=== PATIENT | male | born 1960 | race Caucasian/White ===

== ENCOUNTER 2019-02-10 09:38 | Outpatient (CLI) | payer OTHER, MEDICAID ==
[~2019-02-10 09:38] MED LIST: ALBU8.5H8 IH; ASPI-1077 PO; ATOR40TA PO; CLON-529 PO; DIAZ10TA5 PO; FLUT16SP26 NAS; GUAI120015 PO; IPRA4AER IH; LITH150C8 PO; LOP25T PO; MORP60CA19 PO; OXYC15TA88 PO; TAMS0.4C32 PO; UMEC1DIS IH; UMEC1DIS INH
== END 2019-02-10 23:59 | disposition home or self-care (01) ==
LOC: RAD 09:38
PROVIDERS: ATTEND Internal Medicine
DX: K22.4 Dyskinesia of esophagus (principal); J44.9 Chronic obstructive pulmonary disease, unspecified
CPT/HCPCS: 74220

== ENCOUNTER 2019-08-11 07:41 | Inpatient (IN) | payer MEDICARE, MEDICAID ==
[~2019-08-11] VITALS: Ht 185.4 cm; Wt 98.0 kg
[2019-08-11] MEDS ORDERED: methylPREDNISolone sod succ 125mg/2ml vial IV ONE (07:50)
[2019-08-11] MEDS ORDERED: ipratropium/albuterol 3ml nebule NEB ONE (07:50)
[2019-08-11 07:59] LABS: BASOPHILS # (AUTO) 0.1 X10'3 (0-0.2); BASOPHILS % (AUTO) 1.3 % (0-1); EOSINOPHILS # (AUTO) 0.3 X10'3 (0-0.9); EOSINOPHILS % (AUTO) 3.3 % (0-6); HEMATOCRIT 39.7 % (42.0-52.0); HEMOGLOBIN 13.4 g/dl (14.0-17.9); LYMPHOCYTES # (AUTO) 2.2 X10'3 (1.1-4.8); LYMPHOCYTES % (AUTO) 24.8 % (21-51); MEAN CORPUSCULAR HEMOGLOBIN 32.3 PG (27.0-31.0); MEAN CORPUSCULAR HGB CONC 33.8 g/dL (33.0-36.5); MEAN CORPUSCULAR VOLUME 95.7 FL (78-98); MEAN PLATELET VOLUME 7.7 FL (7.4-10.4); MONOCYTES # (AUTO) 0.7 X10'3 (0-0.9); MONOCYTES % (AUTO) 7.8 % (2-12); NEUTROPHILS # (AUTO) 5.5 X10'3 (1.8-7.7); NEUTROPHILS % (AUTO) 62.8 % (42-75); PLATELET COUNT 300 X10'3 (140-440); RED BLOOD COUNT 4.15 X10'6 (4.70-6.10); RED CELL DISTRIBUTION WIDTH 15.9 % (11.5-14.5); WHITE BLOOD COUNT 8.8 X10'3 (4.5-11.0)
[2019-08-11 08:01] LABS: ABG BASE EXCESS 2.9 mmol/L (-2.0-3.0); ABG HCO3 28.8 mmol/L (22.0-26.0); ABG OXYGEN SATURATION 94.2 % (95-98); ABG PCO2 (T) 48.8 mmHg (35.0-45.0); ABG PH (T) 7.389 (7.350-7.450); ABG PO2 (T) 73.5 mmHg (83-108); ALLEN'S TEST Positive; FCOHb 0.9 % (0.5-1.5); FLOW 6 L/min; FMetHb 0.1 % (0.3-1.12); FO2Hb 93.3 % (94-100); TOTAL HEMOGLOBIN 14.6 G/dl (14.0-17.9)
--- NOTE | 2019-08-11 08:03 | NUR ---
I have reviewed and agree with all medications administered and interventions performed by SECURITY INFRASTRUCTURE ENGINEER Student Arely Tomas.
[2019-08-11 08:14] LABS: ALANINE AMINOTRANSFERASE 20 U/L (12-78); ALBUMIN 3.2 G/DL (3.4-5.0); ALBUMIN/GLOBULIN RATIO 0.7 (1.1-1.5); ALKALINE PHOSPHATASE 65 IU/L (46-116); ANION GAP 8 (8-16); ASPARTATE AMINO TRANSFERASE 20 U/L (10-37); BILIRUBIN,TOTAL 0.5 MG/DL (0.1-1.0); BLOOD UREA NITROGEN 23 MG/DL (7-18); BUN/CREATININE RATIO 18.5 (5.4-32.0); CALCIUM 9.2 MG/DL (8.5-10.1); CHLORIDE 101 MMOL/L (99-107); CREATININE 1.24 MG/DL (0.60-1.10); GLUCOSE 166 MG/DL (70-104); POTASSIUM 3.5 MMOL/L (3.5-5.1); SODIUM 140 MMOL/L (135-145); TOTAL CARBON DIOXIDE 30.8 MMOL/L (24-32); TOTAL PROTEIN 7.7 G/DL (6.4-8.2); eGFR 60 ML/MIN
[2019-08-11 08:15] LABS: PARTIAL THROMBOPLASTIN TIME 28 SECONDS (22-32)
--- NOTE | 2019-08-11 08:41 | NUR ---
PT REPORTS TAKING 30MG OF NORCO LAST NIGHT. MD ADVISED, APAP AND TOX ORDERED. + TROPONIN. V.O. TO REPEAT EKG WHEN HR <120. HR 118 AT THIS TIME. REPEAT EKG IN PROGRESS.
[2019-08-11 08:43] LABS: ACETAMINOPHEN < 2.0 UG/ML (10-30)
[2019-08-11 08:45] LABS: ETHANOL < 0.010 GM/DL (0.0-0.010)
[2019-08-11] MEDS ORDERED: aspirin 325mg tablet PO ONE (08:45)
--- NOTE | 2019-08-11 09:28 | NUR ---
DR. NOVAK IN TO ADMIT PT
[2019-08-11] MEDS ORDERED: diltiazem 30mg tablet PO ONE ×2 (09:45→12:20)
[2019-08-11] MEDS ORDERED: magnesium hydroxide 30ml (MOM) UD suspension PO PRN (09:45)
[2019-08-11] MEDS ORDERED: mag hydrox/Alum hydrox/simeth 30ml oral suspension PO PRN (09:45)
[2019-08-11] MEDS ORDERED: ondansetron/PF 4mg/2ml inj IV PRN (09:45)
[2019-08-11] MEDS ORDERED: acetaminophen 325mg tablet PO PRN (09:45)
[2019-08-11] MEDS: ipratropium/albuterol 3ml nebule NEB SCH ×4 (10:21→23:00)
[2019-08-11 10:30] LABS: URINE AMPHETAMINE SCREEN NEGATIVE (Neg); URINE BARBITUATE SCREEN NEGATIVE (Neg); URINE BENZODIAZEPINES SCREEN POSITIVE (Neg); URINE CANNABINOID SCREEN NEGATIVE (Neg); URINE COCAINE SCREEN NEGATIVE (Neg); URINE METHADONE SCREEN NEGATIVE (Neg); URINE OPIATE SCREEN POSITIVE (Neg); URINE PHENCYCLIDINE SCREEN NEGATIVE (Neg)
--- NOTE | 2019-08-11 10:42 | NUR ---
ATTEMPTED TO DO MED REC WITH PT. STATES HE TAKES NO HOME PILLS AND HAS NO PMD. PT USES [facility] ORDER FOR MEDS. PT STATES HE ONLY TAKES NEBULIZER TREATMENTS AT HOME AND FLOVENT, AND TRELOGY WHEN HE REMEMBERS. [facility] NOTIFIED AND DR. SCARLET FUENTES.
[2019-08-11] MEDS: HYDROcodone/acetaminophen 10/325mg tab PO PRN (11:58)
[2019-08-11 14:00] VITALS: BP 169/105
--- NOTE | 2019-08-11 14:00 | NUR ---
Patient in room PCU 3013. I have received report from Lisa BOYD and had the opportunity to ask questions and assume patient care.
[2019-08-11] MEDS: methylPREDNISolone sod succ 125mg/2ml vial IV SCH ×2 (14:48→20:10)
[2019-08-11] MEDS: morphine 2 MG/ML inj. syringe IV PRN ×2 (14:48→20:10)
[2019-08-11] MEDS: diltiazem 30mg tablet PO SCH ×2 (14:49→20:11)
[2019-08-11 15:00] VITALS: BP 145/96
[2019-08-11] MEDS ORDERED: iohexol 350MG/ML 100ml bottle IV ONE (17:56)
[2019-08-11 18:00] VITALS: BP 176/101
--- NOTE | 2019-08-11 18:27 | NUR ---
report received from DEB Goetz
--- NOTE | 2019-08-11 18:27 | NUR ---
Problems reprioritized. Patient report given, questions answered & plan of care reviewed with Marcelo BOYD.
[2019-08-11] MEDS: heparin, porcine 5000 units/ml vial SQ SCH (20:08)
[2019-08-11 21:34] VITALS: BP 168/96
[2019-08-11] MEDS: hydrALAZINE 20mg/ml inj. IV PRN (21:34)
[2019-08-11 22:00] VITALS: BP 165/92
[2019-08-12 02:00] VITALS: BP 155/97
[2019-08-12] MEDS: diltiazem 30mg tablet PO SCH ×4 (02:05→20:02)
[2019-08-12] MEDS: methylPREDNISolone sod succ 125mg/2ml vial IV SCH ×4 (02:05→20:01)
[2019-08-12] MEDS: morphine 2 MG/ML inj. syringe IV PRN ×4 (02:06→21:36)
[2019-08-12] MEDS: ipratropium/albuterol 3ml nebule NEB SCH ×7 (03:00→23:00)
[2019-08-12] MEDS: HYDROcodone/acetaminophen 10/325mg tab PO PRN (05:02)
[2019-08-12 05:29] LABS: BASOPHILS % (AUTO) 0.2 % (0-1); EOSINOPHILS % (AUTO) 0 % (0-6); HEMATOCRIT 37.6 % (42.0-52.0); HEMOGLOBIN 12.9 g/dl (14.0-17.9); LYMPHOCYTES # (AUTO) 0.4 X10'3 (1.1-4.8); MEAN CORPUSCULAR HEMOGLOBIN 32.6 PG (27.0-31.0); MEAN CORPUSCULAR HGB CONC 34.3 g/dL (33.0-36.5); MEAN CORPUSCULAR VOLUME 94.9 FL (78-98); MEAN PLATELET VOLUME 8.3 FL (7.4-10.4); MONOCYTES # (AUTO) 0.2 X10'3 (0-0.9); MONOCYTES % (AUTO) 2.3 % (2-12); NEUTROPHILS # (AUTO) 6.1 X10'3 (1.8-7.7); NEUTROPHILS % (AUTO) 91.5 % (42-75); PLATELET COUNT 252 X10'3 (140-440); RED BLOOD COUNT 3.96 X10'6 (4.70-6.10); RED CELL DISTRIBUTION WIDTH 15.8 % (11.5-14.5); WHITE BLOOD COUNT 6.7 X10'3 (4.5-11.0)
[2019-08-12 05:48] LABS: ALBUMIN 3.3 G/DL (3.4-5.0); ANION GAP 7 (8-16); BLOOD UREA NITROGEN 30 MG/DL (7-18); CALCIUM 10.1 MG/DL (8.5-10.1); CHLORIDE 98 MMOL/L (99-107); CREATININE 0.91 MG/DL (0.60-1.10); GLUCOSE 193 MG/DL (70-104); POTASSIUM 3.8 MMOL/L (3.5-5.1); SODIUM 137 MMOL/L (135-145); TOTAL CARBON DIOXIDE 32.2 MMOL/L (24-32); eGFR 86 ML/MIN
--- NOTE | 2019-08-12 06:27 | NUR ---
report given to DEB Lin
--- NOTE | 2019-08-12 06:45 | NUR ---
Patient in room PCU 3013. I have received report from Marcelo BOYD and had the opportunity to ask questions and assume patient care.
[2019-08-12] MEDS: aspirin 81mg tablet.DR PO SCH (09:12)
[2019-08-12] MEDS: heparin, porcine 5000 units/ml vial SQ SCH ×2 (09:12→20:02)
[2019-08-12] MEDS: levoFLOXACIN-Levaquin 500mg/D5 100 ML IV SCH (09:17)
[2019-08-12] MEDS ORDERED: SUMAtriptan 25 MG tablet PO ONE ×2 (09:25→10:55)
[2019-08-12 09:30] VITALS: BP 129/88
[2019-08-12 11:00] VITALS: BP 157/98
[2019-08-12] MEDS ORDERED: oxyCODONE/APAP 10/325mg tablet PO PRN (14:35)
[2019-08-12 15:00] VITALS: BP 151/88
[2019-08-12 18:00] VITALS: BP 148/96
--- NOTE | 2019-08-12 18:16 | NUR ---
Patient in room PCU 3013B. I have received report from DEB Lin and had the opportunity to ask questions and assume patient care.
--- NOTE | 2019-08-12 18:22 | NUR ---
Problems reprioritized. Patient report given, questions answered & plan of care reviewed with Ceci BOYD.
--- NOTE | 2019-08-12 21:50 | NUR ---
Attempted to DART patient, he stated that he already answered all these questions and he does not want to repeat himself.
[2019-08-12 22:00] VITALS: BP 150/96
[2019-08-13] VITALS (13 sets, daily range): BP systolic 134–151; BP diastolic 83–112
[2019-08-13] MEDS: methylPREDNISolone sod succ 125mg/2ml vial IV SCH ×4 (02:06→20:13)
[2019-08-13] MEDS: diltiazem 30mg tablet PO SCH ×4 (02:06→20:11)
[2019-08-13] MEDS: ipratropium/albuterol 3ml nebule NEB SCH ×6 (03:00→23:00)
--- NOTE | 2019-08-13 06:22 | NUR ---
Problems reprioritized. Patient report given, questions answered & plan of care reviewed with DEB Cast.
--- NOTE | 2019-08-13 06:34 | NUR ---
Patient in room PCU 3013B. I have received report from Ceci BOYD and had the opportunity to ask questions and assume patient care.
[2019-08-13 06:40] LABS: ALBUMIN 3.3 G/DL (3.4-5.0); ANION GAP 6 (8-16); BLOOD UREA NITROGEN 29 MG/DL (7-18); BUN/CREATININE RATIO 27.1 (5.4-32.0); CALCIUM 10.3 MG/DL (8.5-10.1); CHLORIDE 99 MMOL/L (99-107); CREATININE 1.07 MG/DL (0.60-1.10); GLUCOSE 169 MG/DL (70-104); POTASSIUM 4.7 MMOL/L (3.5-5.1); SODIUM 137 MMOL/L (135-145); TOTAL CARBON DIOXIDE 31.6 MMOL/L (24-32); eGFR 71 ML/MIN
[2019-08-13 06:51] LABS: BASOPHILS % (AUTO) 0 % (0-1); EOSINOPHILS % (AUTO) 0 % (0-6); HEMATOCRIT 35.6 % (42.0-52.0); HEMOGLOBIN 12.1 g/dl (14.0-17.9); LYMPHOCYTES # (AUTO) 0.3 X10'3 (1.1-4.8); LYMPHOCYTES % (AUTO) 2.1 % (21-51); MEAN CORPUSCULAR HEMOGLOBIN 32.3 PG (27.0-31.0); MEAN CORPUSCULAR HGB CONC 33.8 g/dL (33.0-36.5); MEAN CORPUSCULAR VOLUME 95.4 FL (78-98); MEAN PLATELET VOLUME 8.6 FL (7.4-10.4); MONOCYTES # (AUTO) 0.4 X10'3 (0-0.9); MONOCYTES % (AUTO) 2.3 % (2-12); NEUTROPHILS # (AUTO) 14.9 X10'3 (1.8-7.7); NEUTROPHILS % (AUTO) 95.6 % (42-75); PLATELET COUNT 237 X10'3 (140-440); RED BLOOD COUNT 3.74 X10'6 (4.70-6.10); WHITE BLOOD COUNT 15.6 X10'3 (4.5-11.0)
[2019-08-13] MEDS: heparin, porcine 5000 units/ml vial SQ SCH (08:00)
[2019-08-13] MEDS: morphine 2 MG/ML inj. syringe IV PRN ×4 (08:15→20:11)
[2019-08-13] MEDS: levoFLOXACIN-Levaquin 500mg/D5 100 ML IV SCH (08:15)
[2019-08-13] MEDS: aspirin 81mg tablet.DR PO SCH (08:15)
--- NOTE | 2019-08-13 09:29 | NUR ---
MICRO POSITIVE MRSA NASAL SWAB, REPORTED TO PRIMARY RN
[2019-08-13] MEDS ORDERED: LIDOcaine 1% (10mg/ml)w/preservative injection 20ml MDV ONE (10:32)
[2019-08-13] MEDS ORDERED: fentaNYL/PF 50MCG/1 ML 2ML syringe ONE ×2 (10:32→11:16)
[2019-08-13] MEDS ORDERED: iohexol 350 MG/ML 50ML vial IV ONE (10:32)
[2019-08-13] MEDS ORDERED: midazolam 2 mg/2 ml injection ONE ×4 (10:32→11:26)
[2019-08-13] MEDS ORDERED: iohexol 350MG/ML 100ml bottle IV ONE (10:33)
--- NOTE | 2019-08-13 10:50 | NUR ---
Patient taken to label cutter
[2019-08-13] MEDS ORDERED: diphenhydrAMINE 50 mg/ml inj ONE (11:09)
--- NOTE | 2019-08-13 11:40 | NUR ---
Received report from Alyssa BOYD in cardiac cath technician. Puncture site right femoral, perclose. Patient will be medically managed
[2019-08-13] MEDS ORDERED: normal saline 1000ml 1,000 ML IV SCH ×2 (12:00→16:00)
--- NOTE | 2019-08-13 12:00 | NUR ---
Patient returned from irrigation laborer. Pedal pulses present, puncture site assessed with no sign of hematoma. VS 139/90, T 98.0, HR 97, O2 99% on room air. Orders acknowledged and faxed to pharmacy. Will continue to monitor closely
[2019-08-13] MEDS ORDERED: bisoprolol 5mg tablet PO SCH ×2 (12:05→12:30)
[2019-08-13] MEDS: atenolol 25mg tablet PO SCH (12:57)
[2019-08-13] MEDS: hydrALAZINE 20mg/ml inj. IV PRN (15:20)
--- NOTE | 2019-08-13 18:15 | NUR ---
Patient in room PCU 3013. I have received report from DEB Cast and had the opportunity to ask questions and assume patient care.
--- NOTE | 2019-08-13 18:22 | NUR ---
Problems reprioritized. Patient report given, questions answered & plan of care reviewed with Holli BOYD.
[2019-08-13] MEDS: lactobacillus rhamnosus 10,000 MMU CELLS/CAPSULE PO SCH (20:12)
--- NOTE | 2019-08-13 23:48 | NUR ---
Vital sign machine turned off, data lost for remaining Q1H vital signs. Addendum: 08/14/19 at 0534 by Holli Henriquez RN Vital signs obtained correctly.
[2019-08-14 02:00] VITALS: BP 138/96
[2019-08-14] MEDS: diltiazem 30mg tablet PO SCH ×4 (02:37→19:23)
[2019-08-14] MEDS: morphine 2 MG/ML inj. syringe IV PRN ×4 (02:38→19:15)
[2019-08-14] MEDS: methylPREDNISolone sod succ 125mg/2ml vial IV SCH ×3 (02:38→19:12)
[2019-08-14 02:43] VITALS: BP 138/96
[2019-08-14] MEDS: ipratropium/albuterol 3ml nebule NEB SCH ×6 (03:00→23:00)
--- NOTE | 2019-08-14 05:34 | NUR ---
Patient states that he cannot breath. Despite education on emphysema and chronic lung disease, he continues to believe he needs more oxygen. He also states he is in pain and is a mess. He received Morphine per MD order 2 hrs ago. Education provided.
[2019-08-14 05:35] LABS: ALBUMIN 3.1 G/DL (3.4-5.0); ANION GAP 5 (8-16); BLOOD UREA NITROGEN 32 MG/DL (7-18); BUN/CREATININE RATIO 34.8 (5.4-32.0); CALCIUM 9.8 MG/DL (8.5-10.1); CHLORIDE 102 MMOL/L (99-107); CREATININE 0.92 MG/DL (0.60-1.10); GLUCOSE 163 MG/DL (70-104); POTASSIUM 4.4 MMOL/L (3.5-5.1); SODIUM 139 MMOL/L (135-145); TOTAL CARBON DIOXIDE 32.1 MMOL/L (24-32); eGFR 84 ML/MIN
[2019-08-14 05:36] LABS: BASOPHILS % (AUTO) 0 % (0-1); EOSINOPHILS % (AUTO) 0 % (0-6); HEMATOCRIT 35.3 % (42.0-52.0); HEMOGLOBIN 11.7 g/dl (14.0-17.9); LYMPHOCYTES # (AUTO) 0.2 X10'3 (1.1-4.8); LYMPHOCYTES % (AUTO) 1.4 % (21-51); MEAN CORPUSCULAR HEMOGLOBIN 32.1 PG (27.0-31.0); MEAN CORPUSCULAR HGB CONC 33.2 g/dL (33.0-36.5); MEAN CORPUSCULAR VOLUME 96.5 FL (78-98); MEAN PLATELET VOLUME 8.2 FL (7.4-10.4); MONOCYTES # (AUTO) 0.3 X10'3 (0-0.9); MONOCYTES % (AUTO) 1.8 % (2-12); NEUTROPHILS # (AUTO) 14.5 X10'3 (1.8-7.7); NEUTROPHILS % (AUTO) 96.8 % (42-75); PLATELET COUNT 221 X10'3 (140-440); RED BLOOD COUNT 3.66 X10'6 (4.70-6.10); RED CELL DISTRIBUTION WIDTH 16.2 % (11.5-14.5)
--- NOTE | 2019-08-14 06:09 | NUR ---
Problems reprioritized. Patient report given, questions answered & plan of care reviewed with DEB Cast.
--- NOTE | 2019-08-14 06:10 | NUR ---
Patient in room PCU 3013B. I have received report from Holli BOYD and had the opportunity to ask questions and assume patient care.
[2019-08-14 06:30] VITALS: BP 151/100
[2019-08-14] MEDS: atenolol 25mg tablet PO SCH (07:16)
[2019-08-14] MEDS: aspirin 81mg tablet.DR PO SCH (07:16)
[2019-08-14] MEDS: lactobacillus rhamnosus 10,000 MMU CELLS/CAPSULE PO SCH ×2 (07:16→19:23)
[2019-08-14] MEDS: levoFLOXACIN-Levaquin 500mg/D5 100 ML IV SCH (07:17)
[2019-08-14] MEDS ORDERED: oxyCODONE/APAP 10/325mg tablet PO PRN (09:10)
--- NOTE | 2019-08-14 11:00 | NUR ---
Patient refused 1100 vitals.
--- NOTE | 2019-08-14 12:33 | NUR ---
Patient frequently accusing the staff of being neglectful. When patient stated he is in pain, PRN morphine given if appropriate time as passed per order. New order from Dr Rizzo to give percocet 10-325mg, however, was instructed to ONLY give one dose and continue with prn morphine otherwise. When patient states he was having a harder time breathing, RT gave him a treatment and flutter valve instructions provided and education provided multiple times. Reassessing frequently. Frequent rounding done by nurse and aids. Reminding patient multiple times that the nurses cannot change orders for patient without order from the doctor. Claims we are "making him suffer."
[2019-08-14 15:00] VITALS: BP 158/103
--- NOTE | 2019-08-14 16:27 | NUR ---
Pt frequently reporting that staff is not addressing his needs and are being neglectful. Patient complaining that pain is not being managed and is requesting increased doses and frequency of pain medications. Reminded patient that nurses cannot change orders and reminded of orders per Dr. Rizzo. Given morphine IV and one dose of percocet 10mg during the course of shift. Patient is very upset that "no one is addressing my problems". Patient reports "I came here for the shoulder pain, and back pain, and tremors". He states that these have been ongoing for 2-3 months but "I couldn't wait anymore, but all anyone wants to talk about is my breathing". Active listening and support utilized with patient, encouraged him to express concerns. He reports that he is "appealing my discharge" and "I can't go home because I can't take care of myself", "you can't send me home like this". Reminded that patient is not yet being discharged, and we will work on resources prior to discharge. Patient again verbalizes frustration about pain management and wants more pain medications. He states "if I could get up and walk I would just go buy [place] on the [address]", "since you aren't giving me medications, I might as well go buy them somewhere". Reminded patient to ask for pain medications, and reinforced medication orders and plan of care. Will continue to monitor patient.
--- NOTE | 2019-08-14 18:24 | NUR ---
Problems reprioritized. Patient report given, questions answered & plan of care reviewed with Holli BOYD.
--- NOTE | 2019-08-14 18:28 | NUR ---
New hire documentation: I have reviewed and agree with all interventions, assessments performed and documented by Jany BOYD.
--- NOTE | 2019-08-14 18:41 | NUR ---
Patient in room PCU 3013. I have received report from DEB Cast and had the opportunity to ask questions and assume patient care.
[2019-08-14 22:00] VITALS: BP 131/92
[2019-08-15] MEDS: diltiazem 30mg tablet PO SCH ×3 (02:38→13:42)
[2019-08-15 02:41] VITALS: BP 166/95
[2019-08-15 02:43] VITALS: BP 156/94
[2019-08-15] MEDS: ipratropium/albuterol 3ml nebule NEB SCH ×3 (03:00→11:32)
--- NOTE | 2019-08-15 05:14 | NUR ---
Attempted IV 3 times. Patient refuses any more attempts at this time.
[2019-08-15 05:37] LABS: BASOPHILS % (AUTO) 0.1 % (0-1); EOSINOPHILS % (AUTO) 0 % (0-6); HEMATOCRIT 37.8 % (42.0-52.0); HEMOGLOBIN 12.8 g/dl (14.0-17.9); LYMPHOCYTES # (AUTO) 0.3 X10'3 (1.1-4.8); MEAN CORPUSCULAR HEMOGLOBIN 31.9 PG (27.0-31.0); MEAN CORPUSCULAR HGB CONC 33.8 g/dL (33.0-36.5); MEAN CORPUSCULAR VOLUME 94.4 FL (78-98); MEAN PLATELET VOLUME 8.6 FL (7.4-10.4); MONOCYTES # (AUTO) 0.5 X10'3 (0-0.9); MONOCYTES % (AUTO) 3.6 % (2-12); NEUTROPHILS # (AUTO) 12.6 X10'3 (1.8-7.7); NEUTROPHILS % (AUTO) 94.3 % (42-75); PLATELET COUNT 218 X10'3 (140-440); RED CELL DISTRIBUTION WIDTH 15.7 % (11.5-14.5); WHITE BLOOD COUNT 13.4 X10'3 (4.5-11.0)
[2019-08-15 05:46] LABS: ALBUMIN 3.3 G/DL (3.4-5.0); ANION GAP 5 (8-16); BLOOD UREA NITROGEN 28 MG/DL (7-18); BUN/CREATININE RATIO 34.1 (5.4-32.0); CALCIUM 9.5 MG/DL (8.5-10.1); CHLORIDE 99 MMOL/L (99-107); CREATININE 0.82 MG/DL (0.60-1.10); GLUCOSE 154 MG/DL (70-104); POTASSIUM 3.9 MMOL/L (3.5-5.1); SODIUM 139 MMOL/L (135-145); eGFR > 90 ML/MIN
[2019-08-15 06:00] VITALS: BP 167/106
--- NOTE | 2019-08-15 06:10 | NUR ---
Patient in room PCU 3013B. I have received report from Holli BOYD and had the opportunity to ask questions and assume patient care.
--- NOTE | 2019-08-15 06:18 | NUR ---
Problems reprioritized. Patient report given, questions answered & plan of care reviewed with DEB Cast.
[2019-08-15] MEDS: atenolol 25mg tablet PO SCH (07:38)
[2019-08-15] MEDS: aspirin 81mg tablet.DR PO SCH (07:38)
[2019-08-15] MEDS: lactobacillus rhamnosus 10,000 MMU CELLS/CAPSULE PO SCH (07:38)
--- NOTE | 2019-08-15 07:39 | NUR ---
Pt again reporting that nurses and staff are not addressing his concerns, that "I am sicker than when I came here" and "no one does anything about my pain". Again reminded of pain care plan and PRN medications. Encouraged relaxation techniques and self care. He states "I am too sick to move, I can't breathe if I move". Will attempt IV access for IV medications. Will continue to monitor patient.
--- NOTE | 2019-08-15 08:40 | NUR ---
Spoke with Dr. Manzo, who called for an update on the patient, discussed patient and Dr. 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
[2019-08-15 09:20] VITALS: BP 167/113
[2019-08-15] MEDS: hydrALAZINE 20mg/ml inj. IV PRN (09:23)
[2019-08-15] MEDS: methylPREDNISolone sod succ 125mg/2ml vial IV SCH (09:23)
[2019-08-15] MEDS: morphine 2 MG/ML inj. syringe IV PRN ×2 (09:24→13:42)
[2019-08-15] MEDS: levoFLOXACIN-Levaquin 500mg/D5 100 ML IV SCH (09:24)
[2019-08-15 11:00] VITALS: BP 125/73
--- NOTE | 2019-08-15 11:24 | NUR ---
Notified by PT that the patient refused to work with them, stating he could not get out of bed or walk "because I am in pain". PT will attempt again later today.
--- NOTE | 2019-08-15 12:30 | NUR ---
Called report to ARELIS Stearns, at [facility]. All questions answered and notified of transport time.
[2019-08-15 13:40] VITALS: BP 155/100
--- NOTE | 2019-08-15 14:00 | NUR ---
New hire documentation: I have reviewed and agree with all interventions, assessments performed and documented by Jany BOYD .
--- NOTE | 2019-08-15 14:00 | NUR ---
Per MD patient stable for discharge to [facility]. Report called. Family aware. IV removed, tele monitor removed. All belongings sent with patient, valuables removed from safe and returned to patient. Patient transferred via [facility] [employer] to facility.
== END 2019-08-15 14:00 | DRG 189 ==
LOC: ER 07:41 → ED HOLD 09:57 → PCU 3S 13:11
PROVIDERS: ADMIT Family Medicine; ATTEND Family Medicine
PROC: B32T1ZZ Computerized Tomography (CT Scan) of Left Pulmonary Artery using Low Osmolar Contrast (ICD-10-PCS; 2019-08-11)
PROC: B32S1ZZ Computerized Tomography (CT Scan) of Right Pulmonary Artery using Low Osmolar Contrast (ICD-10-PCS; 2019-08-11)
PROC: 4A023N7 Measurement of Cardiac Sampling and Pressure, Left Heart, Percutaneous Approach (ICD-10-PCS; principal; 2019-08-13)
PROC: B2111ZZ Fluoroscopy of Multiple Coronary Arteries using Low Osmolar Contrast (ICD-10-PCS; 2019-08-13)
PROC: B2151ZZ Fluoroscopy of Left Heart using Low Osmolar Contrast (ICD-10-PCS; 2019-08-13)
DX: J96.21 Acute and chronic respiratory failure with hypoxia (principal); I21.A1 Myocardial infarction type 2; J44.1 Chronic obstructive pulmonary disease with (acute) exacerbation; J44.0 Chronic obstructive pulmonary disease with (acute) lower respiratory infection; I25.10 Atherosclerotic heart disease of native coronary artery without angina pectoris; Z88.8 Allergy status to other drugs, medicaments and biological substances; E78.5 Hyperlipidemia, unspecified; I10 Essential (primary) hypertension; J20.9 Acute bronchitis, unspecified; G89.4 Chronic pain syndrome; R00.0 Tachycardia, unspecified; F32.9 Major depressive disorder, single episode, unspecified; F41.9 Anxiety disorder, unspecified; K21.9 Gastro-esophageal reflux disease without esophagitis; Z87.891 Personal history of nicotine dependence; Z85.51 Personal history of malignant neoplasm of bladder; Z98.1 Arthrodesis status
CPT/HCPCS: 36415; 36600; 71045; 71275; 73030; 80048; 80053; 80305; 80320; 80329; 82803; 83605; 83880; 84484; 85018; 85025; 85610; 85730; 87040; 87081; 93005; 93306; 93458; 94640; 94760; 96374; 97530; 99152; 99285; A4620; A6258; C1760; C1769; C1894; G0378; J0360; J1200; J1644; J1956; J2001; J2250; J2270; J2405; J2930; J3010; J7030; Q9967

== ENCOUNTER 2019-12-15 14:20 | Emergency (ER) | payer MEDICARE, MEDICAID ==
[~2019-12-15] VITALS: Ht 185.4 cm; Wt 105.0 kg
[~2019-12-15 14:20] MED LIST changes: +ALBU2.5V13 INH; -ALBU8.5H8 IH; -ASPI-1077 PO; -ATOR40TA PO; +ATR0.5NEB NEB; +BUDE0.5A11 NEB; -CLON-529 PO; -DIAZ10TA5 PO; -FLUT16SP26 NAS; +FLUT1BLS4 INH; +FURO40TA4 PO; -GUAI120015 PO; -IPRA4AER IH; -LITH150C8 PO; -LOP25T PO; +LYR75C PO; +METO-395 PO; +MORP15TA PO; -MORP60CA19 PO; +OXYC-511 PO; -OXYC15TA88 PO; +PANT-47 PO; +PRED5TAB PO; -TAMS0.4C32 PO; -UMEC1DIS IH; -UMEC1DIS INH
[2019-12-15 15:22] LABS: BASOPHILS % (AUTO) 0.2 % (0-1); EOSINOPHILS # (AUTO) 0.1 X10'3 (0-0.9); EOSINOPHILS % (AUTO) 0.8 % (0-6); HEMATOCRIT 35.5 % (42.0-52.0); HEMOGLOBIN 11.7 g/dl (14.0-17.9); MEAN CORPUSCULAR HEMOGLOBIN 28.4 PG (27.0-31.0); MEAN CORPUSCULAR HGB CONC 32.9 g/dL (33.0-36.5); MEAN CORPUSCULAR VOLUME 86.4 FL (78-98); MEAN PLATELET VOLUME 8.3 FL (7.4-10.4); MONOCYTES # (AUTO) 0.9 X10'3 (0-0.9); MONOCYTES % (AUTO) 5.5 % (2-12); NEUTROPHILS # (AUTO) 14.4 X10'3 (1.8-7.7); NEUTROPHILS % (AUTO) 87.5 % (42-75); PLATELET COUNT 284 X10'3 (140-440); RED BLOOD COUNT 4.11 X10'6 (4.70-6.10); RED CELL DISTRIBUTION WIDTH 17.1 % (11.5-14.5); WHITE BLOOD COUNT 16.4 X10'3 (4.5-11.0)
[2019-12-15 15:33] LABS: PARTIAL THROMBOPLASTIN TIME 36 SECONDS (22-32)
[2019-12-15] MEDS ORDERED: ipratropium/albuterol 3ml nebule NEB ONE (15:35)
[2019-12-15] MEDS ORDERED: dexamethasone sod phosphate 10mg/ml inj IV STA (15:35)
[2019-12-15 15:46] LABS: ALANINE AMINOTRANSFERASE 10 U/L (12-78); ALBUMIN 3.1 G/DL (3.4-5.0); ALBUMIN/GLOBULIN RATIO 0.8 (1.1-1.5); ALKALINE PHOSPHATASE 74 IU/L (46-116); ANION GAP 9 (8-16); ASPARTATE AMINO TRANSFERASE 14 U/L (10-37); BILIRUBIN,TOTAL 0.8 MG/DL (0.1-1.0); BLOOD UREA NITROGEN 9 MG/DL (7-18); CALCIUM 8.9 MG/DL (8.5-10.1); CHLORIDE 103 MMOL/L (99-107); CREATININE 0.82 MG/DL (0.60-1.10); GLUCOSE 103 MG/DL (70-104); POTASSIUM 3.8 MMOL/L (3.5-5.1); SODIUM 140 MMOL/L (135-145); TOTAL CARBON DIOXIDE 28.2 MMOL/L (24-32); TOTAL PROTEIN 7.1 G/DL (6.4-8.2); eGFR > 90 ML/MIN
[2019-12-15] MEDS ORDERED: iohexol 350MG/ML 100ml bottle IV ONE (16:06)
--- NOTE | 2019-12-15 16:31 | NUR ---
to cta via gurney with o2
[2019-12-15] MEDS ORDERED: DOXY100C43 PO (17:03)
[2019-12-15] MEDS ORDERED: ALBU8HFA PO (17:03)
[2019-12-15] MEDS ORDERED: ALB0.5UD IH (17:03)
[2019-12-15] MEDS ORDERED: PRED20TA PO (17:03)
[2019-12-15] MEDS ORDERED: ONDA4TAB6 PO ×2 (17:06→19:40)
[2019-12-15] MEDS ORDERED: HYDR-3965 PO ×2 (17:06→19:40)
[2019-12-15] MEDS ORDERED: ondansetron 4mg rapidly disintigrating tab PO ONE (17:30)
[2019-12-15] MEDS ORDERED: HYDROcodone/acetaminophen 10/325mg tab PO ONE (17:30)
[2019-12-15 17:37] VITALS: BP 157/119
--- NOTE | 2019-12-18 11:22 | NUR ---
Dr Ly ordered Cipro 500 mg PO BID for 7 days. Patient called and notified. Script called to [facility].
== END 2019-12-15 17:50 | disposition home or self-care (01) ==
LOC: ER 14:20
DX: J44.1 Chronic obstructive pulmonary disease with (acute) exacerbation (principal); G89.29 Other chronic pain; M25.512 Pain in left shoulder; I25.10 Atherosclerotic heart disease of native coronary artery without angina pectoris; K21.9 Gastro-esophageal reflux disease without esophagitis; J20.9 Acute bronchitis, unspecified; F41.9 Anxiety disorder, unspecified; F32.9 Major depressive disorder, single episode, unspecified; Z98.890 Other specified postprocedural states; Z85.9 Personal history of malignant neoplasm, unspecified; Z88.8 Allergy status to other drugs, medicaments and biological substances; Z79.899 Other long term (current) drug therapy
CPT/HCPCS: 36415; 71045; 71275; 80053; 83605; 83880; 85025; 85610; 85730; 87040; 87070; 87077; 87186; 87502; 87503; 93005; 94640; 96374; 99285; J1100; Q9967; 94760

== ENCOUNTER → 2020-02-16 | Outpatient (CLI) | payer MEDICARE, MEDICAID ==
[~2020-02-16] VITALS: Ht 185.4 cm; Wt 90.7 kg
[~2020-02-16] MED LIST changes: +HYDR-3965 PO; +ONDA4TAB6 PO; +albuterol 2.5 MG/3 ML nebule NEB ONE
== END | disposition home or self-care (01) ==
LOC: RT 14:35
PROVIDERS: ATTEND Internal Medicine Pulmonary Disease
DX: Z01.818 Encounter for other preprocedural examination (principal); J44.9 Chronic obstructive pulmonary disease, unspecified
CPT/HCPCS: 94060; 94727; 94729; 94760

== ENCOUNTER 2020-03-11 09:33 | Inpatient (IN) | payer MEDICARE, MEDICAID ==
[2020-03-05 16:46] LABS: BASOPHILS # (AUTO) 0.1 X10'3 (0-0.2); BASOPHILS % (AUTO) 1.3 % (0-1); EOSINOPHILS # (AUTO) 0.4 X10'3 (0-0.9); EOSINOPHILS % (AUTO) 5.3 % (0-6); LYMPHOCYTES # (AUTO) 1.5 X10'3 (1.1-4.8); LYMPHOCYTES % (AUTO) 18.1 % (21-51); MEAN CORPUSCULAR HEMOGLOBIN 29.4 PG (27.0-31.0); MEAN CORPUSCULAR HGB CONC 33.4 g/dL (33.0-36.5); MEAN CORPUSCULAR VOLUME 87.8 FL (78-98); MEAN PLATELET VOLUME 8.4 FL (7.4-10.4); MONOCYTES # (AUTO) 0.6 X10'3 (0-0.9); MONOCYTES % (AUTO) 6.6 % (2-12); NEUTROPHILS # (AUTO) 5.8 X10'3 (1.8-7.7); NEUTROPHILS % (AUTO) 68.7 % (42-75); PRE OP HEMATOCRIT 39.5 % (42.0-52.0); PRE OP HEMOGLOBIN 13.2 g/dL (14.0-17.9); PRE OP PLATELET COUNT 260 X10'3 (140-440); RED BLOOD COUNT 4.49 X10'6 (4.70-6.10); RED CELL DISTRIBUTION WIDTH 17.3 % (11.5-14.5)
[2020-03-05 16:48] LABS: ALBUMIN 4.1 G/DL (3.4-5.0); ALBUMIN/GLOBULIN RATIO 1.2 (1.1-1.5); ALKALINE PHOSPHATASE 73 IU/L (46-116); BLOOD UREA NITROGEN 19 MG/DL (7-18); BUN/CREATININE RATIO 18.8 (5.4-32.0); CALCIUM 10.4 MG/DL (8.5-10.1); CHLORIDE 105 MMOL/L (99-107); CREATININE 1.01 MG/DL (0.60-1.10); PRE OP ANION GAP 8 (8-16); PRE OP AST 10 U/L (10-37); PRE OP BILIRUB, TOTAL 0.3 MG/DL (0.0-1.0); PRE OP GLUCOSE 103 MG/DL (70-104); PRE OP SODIUM 143 MMOL/L (135-145); TOTAL CARBON DIOXIDE 30.3 MMOL/L (24-32); TOTAL PROTEIN 7.6 G/DL (6.4-8.2); eGFR 76 ML/MIN
[2020-03-05 17:02] LABS: PRE OP ALT 7 U/L (30-65)
[2020-03-11] VITALS (19 sets, daily range): BP systolic 110–158; BP diastolic 64–93
[~2020-03-11] VITALS: Ht 185.4 cm; Wt 91.2 kg
[~2020-03-11 09:33] MED LIST changes: -ATR0.5NEB NEB; -BUDE0.5A11 NEB; +FERR-106 PO; -FLUT1BLS4 INH; -FURO40TA4 PO; -HYDR-3965 PO; +LISI-600 PO; +LOVA20TA2 PO; -LYR75C PO; +MESSAGE TO NURSING IV ONE; -METO-395 PO; -MORP15TA PO; +MSC30T PO; -ONDA4TAB6 PO; -PANT-47 PO; -PRED5TAB PO; +UMEC1DIS PO; +VANCOMYCIN 1,500MG inj. 1,500 MG in normal saline 500ml IV soln 500 ML IV ONE; +cefazolin/dext.iso 2gm/50ml 50 ML IV ONE; +famotidine 20mg tablet PO ONE; +ringers solution, lacted 1,000 ML IV SCH; +tranexamic acid inj. 1,000 MG in normal saline 100ml IV soln 100 ML IV ONE
[2020-03-11] MEDS ORDERED: ketorolac trometh. 30mg/ml inj. ONE (12:15)
[2020-03-11] MEDS ORDERED: ROPIVAcaine 0.5% (5mg/ml) 30ml vial ONE (12:15)
[2020-03-11] MEDS ORDERED: LIDOcaine 2% (20mg/ml) 5ml vial ONE (12:53)
[2020-03-11] MEDS ORDERED: propofol inj 20 ML IV ONE (12:53)
[2020-03-11] MEDS ORDERED: ringers solution, lacted 1,000 ML IV SCH (13:12)
[2020-03-11] MEDS ORDERED: ondansetron/PF 4mg/2ml inj IV PRN ×2 (13:15→17:20)
[2020-03-11] MEDS ORDERED: labetalol 20mg/4ml (5mg/ml) syringe IV PRN (13:15)
[2020-03-11] MEDS ORDERED: fentaNYL/PF 50MCG/1 ML 2ML syringe IV PRN ×2 (13:15)
[2020-03-11] MEDS ORDERED: morphine 4 MG/ML inj SYRINge IV PRN (13:15)
[2020-03-11] MEDS ORDERED: ROPIVAcaine 0.2% (10 MG/5 ML) BOLUS INJECTION INTERSCALE PRN (13:15)
[2020-03-11] MEDS ORDERED: hydrALAZINE 20mg/ml inj. IV PRN (13:15)
[2020-03-11] MEDS ORDERED: morphine 2 MG/ML inj. syringe IV PRN (13:15)
[2020-03-11] MEDS ORDERED: sevoflurane 250ml liquid IH ONE (14:02)
[2020-03-11] MEDS ORDERED: fentaNYL/PF 50MCG/1 ML 2ML syringe ONE ×3 (14:29→16:17)
[2020-03-11] MEDS ORDERED: ePHEDrine 50MG/ML INJ. ONE (14:29)
[2020-03-11] MEDS ORDERED: MIDAZolam 5mg/5ml vial ONE (14:30)
[2020-03-11] MEDS ORDERED: ondansetron/PF 4mg/2ml inj ONE (14:36)
--- NOTE | 2020-03-11 16:41 | NUR ---
Received from OR via ortho bed, accompanied by Anesthesiologist Beverly and report given by Anesthesiolgist. VS stable and sats 98% with 10L, 18G right forearm, 100cc/hr and SCDs on. Left shoulder with dressing cold pack sling and wrap in place with ON-Q present. Radial pulses palpable. No pain.
[2020-03-11 16:50] LABS: APPEARANCE,SYNOVIAL FLUID BLOODY; COLOR,SYNOVIAL FLUID RED; SYN RBC 45500 /CU MM (0); SYN WBC 175 /CU MM (0-200)
[2020-03-11 17:01] LABS: LYMPHOCYTES,SYNOVIAL FLUID 68 % (0-75); MONOCYTES,SYNOVIAL FLUID 16 % (0-0); NEUTROPHILS,SYNOVIAL FLUID 16 % (0-25); SYNOVIAL LINING CELLS FEW
[2020-03-11] MEDS: potassium cl 20mEq in 1/2 NS 1,000 ML IV SCH (17:16)
[2020-03-11] MEDS ORDERED: diphenhydrAMINE 25mg capsule PO PRN ×2 (17:20)
[2020-03-11] MEDS ORDERED: oxyCODONE IR 5mg (immed. release) tablet PO PRN (17:20)
[2020-03-11] MEDS ORDERED: HYDROmorphone inj. 0.5 MG/0.5 ML DISP.SYRIN IV PRN (17:20)
[2020-03-11] MEDS ORDERED: acetaminophen 325mg tablet PO PRN (17:20)
[2020-03-11] MEDS ORDERED: HYDROmorphone 1 mg/ml syringe IV PRN (17:20)
[2020-03-11] MEDS ORDERED: bisacodyl 10mg suppository rectal RC PRN (17:20)
[2020-03-11] MEDS ORDERED: magnesium hydroxide 30ml (MOM) UD suspension PO PRN (17:20)
[2020-03-11] MEDS: ROPIVAcaine 0.2%/PF PUMP/bolus 550 ML INTERSCALE SCH (17:24)
[2020-03-11] MEDS ORDERED: ipratropium 0.5 MG/2.5ML nebule IH PRN (17:45)
--- NOTE | 2020-03-11 18:37 | NUR ---
Report called to receiving nurse. Transferred via ortho bed. Belongings sent with patient to room 340A. Special Issues communicated to receiving nurse DEB Burton. BLL call light within reach, chart at bedside. VS stable. Care turned over to RAMONA BOYD.
--- NOTE | 2020-03-11 18:40 | NUR ---
Patient in room DAVID 340. I have received report from DEB Martinez and had the opportunity to ask questions and assume patient care.
[2020-03-11] MEDS ORDERED: vancomycin/NS 1 GM ADD-VANTAGE 250 ML IV SCH (20:00)
[2020-03-11] MEDS ORDERED: tranexamic acid inj. 900 MG in normal saline 100ml IV soln 100 ML IV ONE (20:30)
[2020-03-11] MEDS: acetaminophen 325mg tablet PO SCH (20:54)
[2020-03-11] MEDS: ferrous sulfate 325mg tablet PO SCH (20:54)
[2020-03-11] MEDS: morphine ER 30mg tablet PO SCH (20:55)
[2020-03-11] MEDS: sennosides 8.6mg tablet PO SCH (21:00)
[2020-03-11] MEDS: oxyCODONE IR 5mg (immed. release) tablet PO PRN (23:40)
[2020-03-11] MEDS: ceFAZolin 1GM/D5W- ADD-VANTAGE 50 ML IV SCH (23:40)
[2020-03-12] VITALS: BP 124/83
[2020-03-12] MEDS: potassium cl 20mEq in 1/2 NS 1,000 ML IV SCH ×3 (02:09→17:16)
[2020-03-12] MEDS: acetaminophen 325mg tablet PO SCH ×4 (02:10→19:45)
[2020-03-12] MEDS: oxyCODONE IR 5mg (immed. release) tablet PO PRN ×5 (04:30→22:07)
[2020-03-12 04:55] LABS: BASOPHILS % (AUTO) 0.2 % (0-1); EOSINOPHILS % (AUTO) 0 % (0-6); HEMATOCRIT 30.9 % (42.0-52.0); HEMOGLOBIN 10.4 g/dl (14.0-17.9); LYMPHOCYTES # (AUTO) 0.4 X10'3 (1.1-4.8); MEAN CORPUSCULAR HEMOGLOBIN 29.3 PG (27.0-31.0); MEAN CORPUSCULAR HGB CONC 33.5 g/dL (33.0-36.5); MEAN CORPUSCULAR VOLUME 87.4 FL (78-98); MEAN PLATELET VOLUME 8.3 FL (7.4-10.4); MONOCYTES # (AUTO) 0.2 X10'3 (0-0.9); MONOCYTES % (AUTO) 3.3 % (2-12); NEUTROPHILS # (AUTO) 6.8 X10'3 (1.8-7.7); NEUTROPHILS % (AUTO) 91.5 % (42-75); PLATELET COUNT 203 X10'3 (140-440); RED BLOOD COUNT 3.53 X10'6 (4.70-6.10); RED CELL DISTRIBUTION WIDTH 17.1 % (11.5-14.5); WHITE BLOOD COUNT 7.5 X10'3 (4.5-11.0)
[2020-03-12 05:01] LABS: ANION GAP 7 (8-16); CHLORIDE 107 MMOL/L (99-107); POTASSIUM 4.7 MMOL/L (3.5-5.1); SODIUM 140 MMOL/L (135-145); TOTAL CARBON DIOXIDE 26.2 MMOL/L (24-32)
--- NOTE | 2020-03-12 06:27 | NUR ---
Problems reprioritized. Patient report given, questions answered & plan of care reviewed with DEB Conroy.
[2020-03-12] MEDS: albuterol 2.5 MG/3 ML nebule NEB PRN ×3 (07:40→20:14)
[2020-03-12 08:00] VITALS: BP 132/79
[2020-03-12] MEDS: ceFAZolin 1GM/D5W- ADD-VANTAGE 50 ML IV SCH (08:00)
[2020-03-12] MEDS: morphine ER 30mg tablet PO SCH ×2 (08:37→19:46)
[2020-03-12] MEDS: aspirin 325mg tablet PO SCH (08:38)
[2020-03-12] MEDS: lisinopril 20mg tablet PO SCH (08:38)
[2020-03-12] MEDS: ferrous sulfate 325mg tablet PO SCH ×2 (08:38→19:44)
[2020-03-12] MEDS: atorvastatin 10mg tablet PO SCH (08:38)
[2020-03-12 11:00] VITALS: BP 131/98
[2020-03-12] MEDS ORDERED: ceFAZolin 1GM/D5W- ADD-VANTAGE 50 ML IV SCH (12:15)
--- NOTE | 2020-03-12 13:58 | NUR ---
Joint replacement consult: Pt seen by RD for written/verbal high protein ed w/ RD contact information provided. Pt requests chopped all since s/p shoulder surgery, double eggs/oatmeals at breakfast, double meats BIDLD, and extra gravy w/ meats since edentulous. Pt requesting multiples of most condiments w/ each meal; RD educated pt on limit that can be sent per meal and that nourishment room is available on floor in case additional preferences. Pt reports no further questions/concerns at this time. RD encouraged pt to contact dietitian's office if further preferences. Addendum: 03/12/20 at [address] Amended: Links added.
--- NOTE | 2020-03-12 18:47 | NUR ---
Report to Fabiola BOYD
[2020-03-12 20:00] VITALS: BP 166/104
[2020-03-12] MEDS: sennosides 8.6mg tablet PO SCH (21:00)
[2020-03-13] VITALS: BP 144/82
[2020-03-13] MEDS: acetaminophen 325mg tablet PO SCH ×3 (02:00→14:13)
[2020-03-13] MEDS: oxyCODONE IR 5mg (immed. release) tablet PO PRN ×6 (02:33→22:25)
[2020-03-13] MEDS: albuterol 2.5 MG/3 ML nebule NEB PRN ×3 (03:55→19:34)
[2020-03-13 06:09] LABS: BASOPHILS # (AUTO) 0.1 X10'3 (0-0.2); BASOPHILS % (AUTO) 0.9 % (0-1); EOSINOPHILS # (AUTO) 0.1 X10'3 (0-0.9); EOSINOPHILS % (AUTO) 2.1 % (0-6); HEMATOCRIT 30.4 % (42.0-52.0); HEMOGLOBIN 10.1 g/dl (14.0-17.9); LYMPHOCYTES # (AUTO) 1.3 X10'3 (1.1-4.8); LYMPHOCYTES % (AUTO) 18.8 % (21-51); MEAN CORPUSCULAR HEMOGLOBIN 29.2 PG (27.0-31.0); MEAN CORPUSCULAR HGB CONC 33.2 g/dL (33.0-36.5); MEAN PLATELET VOLUME 8.6 FL (7.4-10.4); MONOCYTES # (AUTO) 0.7 X10'3 (0-0.9); MONOCYTES % (AUTO) 9.2 % (2-12); NEUTROPHILS # (AUTO) 4.9 X10'3 (1.8-7.7); PLATELET COUNT 187 X10'3 (140-440); RED BLOOD COUNT 3.46 X10'6 (4.70-6.10); RED CELL DISTRIBUTION WIDTH 17.7 % (11.5-14.5); WHITE BLOOD COUNT 7.1 X10'3 (4.5-11.0)
--- NOTE | 2020-03-13 06:15 | NUR ---
Problems reprioritized. Patient report given, questions answered & plan of care reviewed with Tabatha BOYD.
[2020-03-13 07:00] VITALS: BP 174/110
[2020-03-13] MEDS: aspirin 325mg tablet PO SCH (07:43)
[2020-03-13] MEDS: ferrous sulfate 325mg tablet PO SCH ×2 (07:43→20:35)
[2020-03-13] MEDS: atorvastatin 10mg tablet PO SCH (07:43)
[2020-03-13] MEDS: morphine ER 30mg tablet PO SCH ×2 (07:43→20:35)
[2020-03-13] MEDS: lisinopril 20mg tablet PO SCH (07:45)
[2020-03-13 11:00] VITALS: BP 155/93
[2020-03-13] MEDS: ROPIVAcaine 0.2%/PF PUMP/bolus 550 ML INTERSCALE SCH ×2 (13:41→22:25)
[2020-03-13] MEDS ORDERED: acetaminophen 325mg tablet PO PRN (17:20)
--- NOTE | 2020-03-13 18:30 | NUR ---
Problems reprioritized. Patient report given, questions answered & plan of care reviewed with Josephine Anderson RN.
--- NOTE | 2020-03-13 18:45 | NUR ---
Patient in room DAVID 340. I have received report from DEB Ruth and had the opportunity to ask questions and assume patient care. Addendum: 03/13/20 at 1846 by Camila Manzano RN Amended: Links added.
[2020-03-13 20:00] VITALS: BP 163/82
[2020-03-13] MEDS: sennosides 8.6mg tablet PO SCH (20:36)
[2020-03-14] VITALS: BP 182/111
[2020-03-14] MEDS: oxyCODONE IR 5mg (immed. release) tablet PO PRN ×2 (02:24→06:26)
[2020-03-14 05:15] LABS: BASOPHILS # (AUTO) 0.1 X10'3 (0-0.2); BASOPHILS % (AUTO) 0.8 % (0-1); EOSINOPHILS # (AUTO) 0.4 X10'3 (0-0.9); EOSINOPHILS % (AUTO) 3.7 % (0-6); HEMATOCRIT 34.6 % (42.0-52.0); HEMOGLOBIN 11.4 g/dl (14.0-17.9); LYMPHOCYTES # (AUTO) 1.4 X10'3 (1.1-4.8); LYMPHOCYTES % (AUTO) 13.3 % (21-51); MEAN CORPUSCULAR VOLUME 87.9 FL (78-98); MEAN PLATELET VOLUME 8.5 FL (7.4-10.4); MONOCYTES % (AUTO) 10.2 % (2-12); NEUTROPHILS # (AUTO) 7.4 X10'3 (1.8-7.7); PLATELET COUNT 211 X10'3 (140-440); RED BLOOD COUNT 3.93 X10'6 (4.70-6.10); RED CELL DISTRIBUTION WIDTH 17.5 % (11.5-14.5); WHITE BLOOD COUNT 10.2 X10'3 (4.5-11.0)
--- NOTE | 2020-03-14 06:24 | NUR ---
Problems reprioritized. Patient report given, questions answered & plan of care reviewed with DEB Deluca.
[2020-03-14 07:00] VITALS: BP 153/86
[2020-03-14] MEDS ORDERED: oxyCODONE/APAP 10/325mg tablet PO PRN (08:20)
[2020-03-14] MEDS: morphine ER 30mg tablet PO SCH (08:22)
[2020-03-14] MEDS: ferrous sulfate 325mg tablet PO SCH (08:22)
[2020-03-14] MEDS: lisinopril 20mg tablet PO SCH (08:24)
[2020-03-14] MEDS: atorvastatin 10mg tablet PO SCH (08:24)
[2020-03-14] MEDS: aspirin 325mg tablet PO SCH (08:24)
[2020-03-14] MEDS: oxyCODONE/APAP 10/325mg tablet PO PRN ×2 (09:37→13:47)
[2020-03-14] MEDS ORDERED: FLO44IN PO (09:52)
[2020-03-14] MEDS ORDERED: diatrozoate meglu/diatrozoate sod (37% iodine) 120ML oral solution PO STA (10:10)
[2020-03-14] MEDS: albuterol 2.5 MG/3 ML nebule NEB PRN ×2 (10:30→14:41)
[2020-03-14] MEDS ORDERED: diatrozoate meglu/diatrozoate sod (37% iodine) 120ML oral solution PO ONE (10:40)
[2020-03-14 11:24] VITALS: BP 142/91
--- NOTE | 2020-03-14 11:34 | NUR ---
Pt states he feels that he can care for himself at home with his current pain control. Macarena Watson notified. Will continue to monitor.
[2020-03-14] MEDS ORDERED: OXYC-511 PO (12:07)
[2020-03-14] MEDS ORDERED: ASPI-1 PO (12:07)
[2020-03-14] MEDS ORDERED: ONQPUMP ADDCANAL (12:11)
--- NOTE | 2020-03-14 13:29 | NUR ---
F/u: Pt seen again by MANI concerning food preferences; pt requesting korean fries and cheese burgers BIDLD though previously requested chopped meats r/t poor dental status so was receiving no bun and chopped burger abdi. Pt reports has dentures at bedside but doesn't want to use them and would like whole burgers at meals; is agreeable to write chopped on menu as a preference for desired foods and send regular foods from now on. Pt educated on grill closure at dinner times so unable to send korean fries and was agreeable to cottage cheese instead. Pt once more educated on condiment maximum of 3 each type allowed per meal and to request from nourishment room on floor if would like additional. Hx prior admit hoarding food items. Coffee TIDWM as well; Dietary notified of preferences. Addendum: 03/14/20 at [address] Amended: Links added.
--- NOTE | 2020-03-14 16:16 | NUR ---
Pt discharged to home with all belongings, in private vehicle, accompanied by caregiver. Discharge instructions and medications reviewed. New prescription called to [facility] [employer] and pain medication prescription given to pt with instructions to fol Addendum: 03/14/20 at 1630 by Sandrine Triana RN take to pharmacy of choice to fill. OnQ changed to new ball. Insertion site reinforced with tape with education provided to pt in terms of use and discontinuing when empty. Island dressing to left shoulder changed with 2 extra island dressings provided to patient. Ice packs x2 also sent home with patient, as well as sling. Pt instructed to follow up with scheduled appointment and to contact Dr Abdullahi office for any concerns. IV DC'd, cannula intact. Home medications stored in pharmacy returned to pt and pt instructed to stop at front lobby to collect rest of belongings. Pt escorted to front lobby via wheelchair.
--- NOTE | 2020-03-14 17:53 | NUR ---
Rec'd call from friend of pt that states the pt is unable to access a dose from the OnQ device. The friend verbalized troubleshooting the pump, but unable to solve issue. Call directed to DEB Mix, on Ortho unit for more detailed instructions and coaching to troubleshoot d/t her experience with OnQ devices. DEB Deluca was notified.
[2020-03-14] MEDS ORDERED: FLUTICASONE PROPIONATE PO SCH (20:00)
[2020-03-15] MEDS ORDERED: VILANTEROL PO SCH (08:00)
[2020-03-15] MEDS ORDERED: UMECLIDINIUM PO SCH (08:00)
--- NOTE | 2020-03-25 09:30 | NUR ---
Case Management DC follow up: spoke to pt via telephone. S/P: LTSA Reports: "still in pain, managed w/Rx oxycodone". Denies: acute cp, worsenting SOB r/t hx COPD, resp distress, vertigo, syncope,weakness, blurry vision, N/V, HOLGUIN, emergent general pain, abd tenderness/distension, fever. Denies s/s infection to L shoulder, arm. Pt continues 24/7 O2. Verbalizes understanding of s/s that warrant -/ER visit for evaluation. Verbalizes understanding of Rx and why prescribed, resumes current Rx/taking as ordered, no ase r/t polypharmacy. Acknowledges need to schedule/keep follow up appts w/ PCP Dr Kaylen Orosco. pt has been seen. [facility] has been to home for assessmet, T & TH, PT as well. : Needs met, questions answered at DC, no further questions at this time.
== END 2020-03-14 16:07 | disposition home health service (06) | DRG 483 ==
LOC: PAS IN 09:33 → EDSTATUS 12:00 → SUR 3N 17:16
PROVIDERS: ADMIT Orthopaedic Surgery; ATTEND Orthopaedic Surgery
PROC: 0RPK0JZ Removal of Synthetic Substitute from Left Shoulder Joint, Open Approach (ICD-10-PCS; 2020-03-11)
PROC: 3E0T3BZ Introduction of Anesthetic Agent into Peripheral Nerves and Plexi, Percutaneous Approach (ICD-10-PCS; 2020-03-11)
PROC: 0RRK00Z Replacement of Left Shoulder Joint with Reverse Ball and Socket Synthetic Substitute, Open Approach (ICD-10-PCS; principal; 2020-03-11 14:02)
DX: T84.098A Other mechanical complication of other internal joint prosthesis, initial encounter (principal); D62 Acute posthemorrhagic anemia; F11.20 Opioid dependence, uncomplicated; M75.122 Complete rotator cuff tear or rupture of left shoulder, not specified as traumatic; Z96.612 Presence of left artificial shoulder joint; E78.5 Hyperlipidemia, unspecified; F17.210 Nicotine dependence, cigarettes, uncomplicated; G89.29 Other chronic pain; M54.9 Dorsalgia, unspecified; I10 Essential (primary) hypertension; J44.9 Chronic obstructive pulmonary disease, unspecified; M65.812 Other synovitis and tenosynovitis, left shoulder; Y79.2 Prosthetic and other implants, materials and accessory orthopedic devices associated with adverse incidents; Y92.89 Other specified places as the place of occurrence of the external cause; Z79.899 Other long term (current) drug therapy
CPT/HCPCS: 36415; 80051; 80053; 82948; 85025; 87070; 87075; 87081; 87102; 89051; 94640; 94760; 97110; 97116; 97162; 97530; A4565; A4618; A7000; C1776; G0378; J0690; J1885; J2001; J2250; J2270; J2405; J2704; J2795; J3010; J3370; J3480; J7040; J7120